=== PATIENT | female | born 1960 | race Caucasian/White ===

== ENCOUNTER 2018-01-20 07:48 | Day surgery (SDC) | payer BC ==
[~2018-01-20 07:48] MED LIST: Buffered Lidocaine 0.9% SYRIN* 5 ML/SYR SYRINGE INTRADERM ONE
[2018-01-20] MEDS ORDERED: Bupivacaine 0.25% SDV* 30 ML ONE (08:39)
[2018-01-20] MEDS ORDERED: Midazolam* 1 MG/ML 2 ML VIAL (2 MG) ONE ×2 (09:30→09:32)
[2018-01-20] MEDS ORDERED: fentaNYL* 50 MCG/ML 2 ML VIAL (100 MCG VIAL) ONE (09:30)
[2018-01-20] MEDS ORDERED: Naloxone* 0.4 MG/ML 1 ML VIAL IV PRN (10:00)
[2018-01-20 10:14] VITALS: BP 107/71
--- NOTE | 2018-01-20 21:14 | OP ---
DATE OF OPERATION: 01/20/18 - [facility] DATE OF : 62 SURGEON: Walter Butt MD. DRY TRANSFER MAN: DEMARCUS Cody. ANESTHESIOLOGIST: Dr. Khalil. ANESTHESIA: Local MAC. PRE-OP DIAGNOSES: 1. Left de Quervain's disease. 2. Left first dorsal compartment tendon sheath mass. POST-OP DIAGNOSES: 1. Left de Quervain' s disease. 2. Extensive left first dorsal compartment tenosynovitis. OPERATIVE PROCEDURE: 1. Left first dorsal compartment extensive tenosynovectomy. 2. Left first dorsal compartment de Quervain's release. INDICATIONS: Elke has had progressive disease. She has very large nodular masses in the area. I talked to her about risks and benefits including the risk of numbness distal to the operative site. She wanted to proceed. ESTIMATED BLOOD LOSS: 2 mL. COMPLICATIONS: None. FINDINGS: See above and below. DESCRIPTION OF PROCEDURE: Elke was seen in the preoperative holding area. The correct site and side of procedure were identified. She came back to the operating room. The arm was prepped and draped in the usual fashion. I had infiltrated the operative area with 0.25% plain Marcaine. A time-out was performed. The arm was exsanguinated with the Esmarch and the tourniquet inflated to 250 mmHg. I then made a transverse incision just proximal to the radial styloid of about 2 to 3 cm. I bluntly raised full thickness flaps off the tendon sheath retracting the radial sensory nerve with the flap. I then came along the dorsal margin of the first dorsal compartment tendon sheath. When I then saw that there were no masses on top of the tendon sheath, I came along the dorsal margin of the first dorsal compartment tendon sheath and longitudinally incised the sheath there in line with the tendons. Immediately, abundant tenosynovitis protruded through where I had incised the tendon sheath. I completed the release of the tendon sheath distally and proximally with the tenotomy scissors. I then took quite a bit of time and performed an extensive tenosynovectomy of the first dorsal compartment tendons. There were three tendon slips in the sheath. There were no accessory compartments. All of the tenosynovitis was excised proximally and distally. I handed all of the specimen. Once things were looking nice and clean, we irrigated out the wound. Skin was closed with 4-0 Monocryl and Steri-Strips. Wound was dressed appropriately and she was taken to the recovery room in stable condition. [id number]/[facility] #: [id number] JENN
== END 2018-01-20 10:25 | disposition home or self-care (01) ==
LOC: OREAST 07:48
PROVIDERS: ATTEND Orthopaedic Surgery Hand Surgery
DX: M65.4 Radial styloid tenosynovitis [de Quervain] (principal); E03.9 Hypothyroidism, unspecified; M19.90 Unspecified osteoarthritis, unspecified site; F32.9 Major depressive disorder, single episode, unspecified
CPT/HCPCS: 88304; J2250; J3010

== ENCOUNTER 2019-04-30 09:00 | Emergency (ER) | payer BC ==
[2019-04-30] MEDS ORDERED: Tetan/Diph/Pertus SYR(Tdap)* 0.5 ML SYR(BOOSTRIX) use SYR contains LATEX IM ONE (09:23)
[2019-04-30] MEDS ORDERED: Lidocaine 1% MPF ** 5 ML VIAL INJ ONE (09:23)
--- NOTE | 2019-04-30 09:29 | ED ---
Laceration/Wound HPI - HPI Summary HPI Summary: Patient is a 58-year-old female who presents emergency department for laceration to second digit of left hand that occurred just prior to arrival. Patient states she was slicing bread when knife slipped and cut finger. Unaware of last tetanus. No past medical hx. Sxs are mild in severity. No current modifying factors. - History of Current Complaint Stated Complaint: LACERATION TO LEFT INDEX FINGER Time Seen by Provider: 04/30/19 09:12 Hx Obtained From: Patient Hx Last Menstrual Period: 11/22/14 Pain Intensity: 2 - Allergy/Home Medications Allergies/Adverse Reactions: Allergies Allergy/AdvReac Type Severity Reaction Status Date / Time No Known Allergies Allergy Verified 04/30/19 09:09 PMH/Surg Hx/FS Hx/Imm Hx Previously Healthy: Yes Endocrine/Hematology History: Reports: Hx Thyroid Disease - hashimotos Denies: Hx Diabetes Cardiovascular History: Denies: Hx Hypertension, Hx Pacemaker/ICD, Other Cardiovascular Problems/ Disorders Respiratory History: Denies: Hx Asthma, Hx Chronic Obstructive Pulmonary Disease (COPD), Other Respiratory Problems/Disorders GI History: Denies: Hx Ulcer, Other GI Disorders Musculoskeletal History: Denies: Hx Rheumatoid Arthritis, Hx Osteoporosis Sensory History: Reports: Hx Contacts or Glasses - glasses Denies: Hx Hearing Aid Opthamlomology History: Reports: Hx Contacts or Glasses - glasses Neurological History: Denies: Other Neuro Impairments/Disorders Psychiatric History: Reports: Hx Depression - on meds Denies: Hx Panic Disorder - Cancer History Hx Chemotherapy: No Hx Radiation Therapy: No - Surgical History Surgery Procedure, Year, and Place: LEFT WRIST TENDON IN THUMB Hx Anesthesia Reactions: No Infectious Disease History: No Infectious Disease History: Denies: Hx Clostridium Difficile, Hx Hepatitis, Hx Human Immunodeficiency Virus (HIV), Hx of Known/Suspected MRSA, Hx Shingles, Hx Tuberculosis, Hx Known/ Suspected VRE, Hx Known/Suspected VRSA, History Other Infectious Disease, Traveled Outside the [place] in Last 30 Days - Family History Known Family History: Positive: Non-Contributory - Social History Occupation: Employed Full-time Lives: With Family Alcohol Use: Daily Alcohol Amount: states one glass wine daily Substance Use Type: Reports: None Smoking Status (MU): Former Smoker Type: Cigarettes Review of Systems Positive: Other - laceration to second digit of left hand Neurological: Negative Negative: Weakness, Paresthesia, Numbness All Other Systems Reviewed And Are Negative: Yes Physical Exam Triage Information Reviewed: Yes Vital Signs On Initial Exam: Initial Vitals Temp Pulse Resp BP Pulse Ox 97.6 F 61 14 128/76 100 04/30/19 09:07 04/30/19 09:07 04/30/19 09:07 04/30/19 09:07 04/30/19 09:07 Vital Signs Reviewed: Yes Appearance: Positive: Well-Appearing - Pt. sitting on bed in NAD. Skin: Positive: Warm, Dry Head/Face: Positive: Normal Head/Face Inspection Eyes: Positive: Normal, EOMI Musculoskeletal: Positive: Other - 2 cm linear laceration noted to the proximal aspect on the dorsal surface of 2nd digit of left hand. Full ROM of digit. No bony tenderness. Neurological: Positive: Normal, CN Intact II-III Psychiatric: Positive: Affect/Mood Appropriate Procedures - Laceration/Wound Repair 1 Location: upper extremity - left 2nd digit of finger Description: Linear Anesthesia: Local, 1.0%, Lido Length, Depth and Shape: 2cm linear Betadine Prep?: No - hibiclens Laceration/Wound Explored: clean Closure: Single Layer Suture Type: Nylon Layer Closure?: No Sterile Dressing Applied?: Yes Diagnostics - Vital Signs Vital Signs Temp Pulse Resp BP Pulse Ox 04/30/19 09:07 97.6 F 61 14 128/76 100 - Laboratory Lab Statement: Any lab studies that have been ordered have been reviewed, and results considered in the medical decision making process. Laceration Repair Course/Dx - Course Course Of Treatment: Pt. presenting with simple finger laceration that was repaired as noted above. Tetanus updated. During laceration repair pt. had a very brief syncopal episode. Pt. was already lying on stretcher for lac repair. No fall or injury sustained. Cool wash cloth placed on forehead. Juice provided. Pt. starting feeling better and wound repair was completed. Pt. resting in room and back to baseline at time of discharge. Suture removal in 7- 10 days. To keep wound clean and dry. Return to ER for redness, swelling or drainage from wound. - Differential Dx Differental Diagnoses: Laceration, Tendon Laceration - Clinical Impression Provider Diagnoses: Finger laceration Discharge - Sign-Out/Discharge Documenting (check all that apply): Patient Departure Patient Received Moderate/Deep Sedation with Procedure: No - Discharge Plan Condition: Good Disposition: HOME Patient Education Materials: Care For Your Stitches (ED) Referrals: Andree Corona MD [Primary Care Provider] - Additional Instructions: Suture removal in 7-10 days Keep wound clean and dry Return to ER for redness, swelling or drainage from wound - Billing Disposition and Condition Condition: GOOD Disposition: Home
[2019-04-30 10:58] VITALS: BP 116/78
== END 2019-04-30 10:57 | disposition home or self-care (01) ==
LOC: ED 09:00
DX: S61.211A Laceration without foreign body of left index finger without damage to nail, initial encounter (principal); W26.0XXA Contact with knife, initial encounter; Y93.G1 Activity, food preparation and clean up; Y92.9 Unspecified place or not applicable; Z23 Encounter for immunization; F32.9 Major depressive disorder, single episode, unspecified; Z87.891 Personal history of nicotine dependence
CPT/HCPCS: 12001; 90471; 90715; 99282